=== PATIENT | female | born 1985 | race Hispanic/Latino ===

== ENCOUNTER 2017-12-29 15:23 | Outpatient (CLI) | payer BC ==
--- NOTE | 2017-12-29 16:14 | MRI ---
MRI CERVICAL SPINE WITHOUT CONTRAST 12/29/17 COMPARISON: None. HISTORY: Cervical radiculopathy with left arm and shoulder pain with tingling. TECHNIQUE: Multiplanar and multisequence MR images were obtained of the cervical spine without contrast. FINDINGS: The vertebral bodies and intervertebral discs demonstrate normal height and alignment without fractur e or subluxation. The visualized cord demonstrates normal signal throughout. The craniocervical junct ion is unremarkable. The prevertebral and paraspinal soft tissues are unremarkable. C2-3: Unremarkable. C3-4: Unremarkable. C4-5: Unremarkable. C5-6: A small central protrusion associated with high T2 signal which may represent an annular tear. This abuts the anterior aspect of the cord. Mild central canal stenosis. No posterior facet arthrosis . No neural foraminal stenosis. C6-7: Unremarkable. C7-T1: Unremarkable. IMPRESSION: Small protrusion at C5-6 as above. POS: [facility]
== END 2017-12-29 15:24 | disposition home or self-care (01) ==
LOC: SCSMRI 15:23
PROVIDERS: ATTEND Specialist
DX: M50.122 Cervical disc disorder at C5-C6 level with radiculopathy (principal)
CPT/HCPCS: 72141

== ENCOUNTER 2018-02-05 09:50 | Outpatient (CLI) | payer BC ==
[2018-02-05 11:27] LABS: BHCG - Serum Negative (NEGATIVE); Pregs Control Background? CLEAR/WHITE (CLR/WHITE); Pregs Control Bar Appear? YES (CONTROL BAR)
== END 2018-02-05 09:51 | disposition home or self-care (01) ==
LOC: LABBT 09:50
PROVIDERS: ATTEND Neurological Surgery
DX: Z01.818 Encounter for other preprocedural examination (principal); M54.12 Radiculopathy, cervical region
CPT/HCPCS: 84703

== ENCOUNTER 2018-02-09 06:09 | Day surgery (SDC) | payer BC ==
[2018-02-05 10:03] VITALS: BMI 26.5
[2018-02-09] MEDS ORDERED: Sodium Chloride 0.9% 10 ML ONE (06:25)
[2018-02-09] MEDS ORDERED: Midazolam HCl 2 mg/2 ml Vial ONE (07:03)
[2018-02-09] MEDS ORDERED: CEFAZOLIN/Water 2 GM/20 ML SYRINGE ONE (07:03)
[2018-02-09] MEDS ORDERED: Fentanyl 100 MCG/2 ML VIAL ONE ×2 (07:05→09:02)
--- NOTE | 2018-02-09 09:33 | OP ---
DATE OF PROCEDURE: 02/09/2018 SURGEON: Clark Barajas [employer] PROGRAMMER: Mikael Elaine PA-C PROCEDURE: Anterior cervical discectomy C5-6, interbody arthrodesis, intravertebral biomechanical de vice, local morselized autograft, demineralized bone matrix, anterior titanium instrumentation C5-6. PROCEDURE IN DETAIL: The patient was brought to the operating room intubated. She was positioned watson pine in modest extension on a gel-filled donut. Incision was made in the right precervical area and dissecting medial sternocleidomastoid muscle, identified the anterior cervical spine and our level wa s confirmed by x-ray. We placed distraction across the disc spaces, completely decompressed the intr avertebral disc at C5-6. Next, the bony endplates were decorticated for the purpose of arthrodesis a nd appropriately sized intravertebral biomechanical PEEK device was brought into the field, filled wi th demineralized bone matrix and local morselized autograft, and tapped into place securely at C5-6. Next, an anterior plate was brought in the field and secured to C5 and C6 using two 14 mm screws at each level. The wound was extensively irrigated, immaculate hemostasis was secured. The wound was c losed in anatomic layers.
[2018-02-09] MEDS ORDERED: Ketorolac Tromethamine 30 MG/ML VIAL ONE (10:11)
[2018-02-09] MEDS ORDERED: Dexamethasone 20 MG/5 ML VIAL ONE (10:11)
[2018-02-09] MEDS ORDERED: Ondansetron HCl/PF 4 MG/2 ML Vial ONE (10:11)
[2018-02-09] MEDS ORDERED: Lidocaine 1% PF 5 ML VIAL ONE (10:11)
[2018-02-09] MEDS ORDERED: PROPOFOL 200 MG/20 ML VIAL ONE (10:11)
[2018-02-09] MEDS ORDERED: Glycopyrrolate 0.2 MG/ML 5 ML SYRINGE ONE (10:11)
[2018-02-09] MEDS ORDERED: HYDROcodone/Acetaminophen 5/325 mg Tablet ONE (10:50)
== END 2018-02-09 11:15 | disposition home or self-care (01) ==
LOC: SDC 06:09
PROVIDERS: ATTEND Neurological Surgery
PROC: 0RT30ZZ Resection of Cervical Vertebral Disc, Open Approach (ICD-10-PCS; principal; 2018-02-09)
PROC: 0RG10A0 Fusion of Cervical Vertebral Joint with Interbody Fusion Device, Anterior Approach, Anterior Column, Open Approach (ICD-10-PCS; principal; 2018-02-09)
DX: M54.12 Radiculopathy, cervical region (principal); Z79.1 Long term (current) use of non-steroidal anti-inflammatories (NSAID); Z79.899 Other long term (current) drug therapy
CPT/HCPCS: 76001; 96374; A4216; C1713; C1776; J1100; J1885; J2001; J2250; J2405; J2704; J3010; J3490

== ENCOUNTER 2018-02-22 10:16 | Outpatient (CLI) | payer BC ==
--- NOTE | 2018-02-22 12:52 | RAD ---
CERVICAL SPINE THREE VIEWS: HISTORY: A 32-year-old female with a history of a cervical herniated disk. FINDINGS: Anterior cervical fusion changes at C5-C6. No evidence for significant malalignment. Mild spondylos is. No significant prevertebral soft tissue swelling. No acute fracture involving the visualized ce rvical spine. IMPRESSION: 1. Anterior cervical fusion changes at C5-C6 without malalignment. 2. Minimal cervical spondylosis. POS: [facility]
== END 2018-02-22 10:17 | disposition home or self-care (01) ==
LOC: TBSIIMAG 10:16
PROVIDERS: ATTEND Neurological Surgery
DX: M50.20 Other cervical disc displacement, unspecified cervical region (principal); M47.892 Other spondylosis, cervical region; Z98.1 Arthrodesis status
CPT/HCPCS: 72040

== ENCOUNTER 2019-10-14 09:12 | Outpatient (CLI) | payer BC ==
--- NOTE | 2019-10-14 09:38 | RAD ---
EXAM: XR Cerv Sp Ap Lat STANDARD (3 views total) DATE: 10/14/2019 12:00 AM INDICATION: 34-year-old female with radiculopathy COMPARISON: February 22, 2018 FINDING: The ACDF plate at C5-6 is unchanged in position. The intervertebral disc cage at C5-6 is un changed. Mild anterior translation of C3 on C4 is stable. Mild retrolisthesis of C5 on C6 is stable. Mild multilevel facet osteoarthritic changes stable. Lateral masses are symmetric. Lung apice s are clear. Prevertebral soft tissues are normal appearing. IMPRESSION:Stable postoperative cervical spine.
== END 2019-10-14 09:13 | disposition home or self-care (01) ==
LOC: TBSIIMAG 09:12
PROVIDERS: ATTEND Neurological Surgery
DX: M54.12 Radiculopathy, cervical region (principal); Z98.1 Arthrodesis status
CPT/HCPCS: 72040